=== PATIENT | female | born 1945 | race Caucasian/White ===

== ENCOUNTER 2023-08-29 09:57 | Day surgery (SDC) | payer MEDICARE ==
[2023-08-29] MEDS ORDERED: LIDOCAINE HCL 2% 100 MG/5 ML IJ ONE (09:58)
[2023-08-29] MEDS ORDERED: DIPRIVAN 200 MG/20 ML IV ONE (13:19)
--- NOTE | 2023-08-29 14:38 | XRAY ---
Indication: Bilateral L4-S1 MBB. Intraoperative fluoroscopy provided for 11 seconds. Single digital spot image submitted for interpretation demonstrates posterior needle tips projecting over the expected left and right L4-S1 nerve roots. Correlate with intraoperative findings/report.
[2023-08-29] MEDS ORDERED: Lactated Ringers 1,000 ML IV ONE (14:50)
--- NOTE | 2023-08-29 14:55 | XRAY ---
11 seconds of fluoroscopy was used in surgery for a bilateral L4-S1 MBB.
== END 2023-08-29 13:48 | disposition home or self-care (01) ==
LOC: SDC-PAIN 09:57
PROVIDERS: ATTEND Psychiatry & Neurology Pain Medicine
DX: M47.816 Spondylosis without myelopathy or radiculopathy, lumbar region (principal); E11.9 Type 2 diabetes mellitus without complications; Z79.899 Other long term (current) drug therapy
CPT/HCPCS: 64493; 64494; 72020; 77002; 82947; J2704

== ENCOUNTER 2023-10-31 09:29 | Day surgery (SDC) | payer MEDICARE ==
[2023-10-31] MEDS ORDERED: BUPIVACAINE 0.5% VIAL IJ ONE (09:30)
[2023-10-31] MEDS ORDERED: DIPRIVAN 200 MG/20 ML IV ONE (11:34)
--- NOTE | 2023-10-31 12:43 | XRAY ---
Indication: Bilateral L4-S1 MBB. Intraoperative fluoroscopy provided for 13 seconds. Single digital spot image submitted for interpretation demonstrates posterior needle tips projecting over the expected left and right L4-S1 nerve roots. Correlate with intraoperative findings/report.
--- NOTE | 2023-10-31 13:35 | XRAY ---
13 seconds of fluoroscopy was used in surgery for a bilateral L4-S1 MBB.
[2023-10-31] MEDS ORDERED: Lactated Ringers 1,000 ML IV ONE (14:08)
== END 2023-10-31 12:00 | disposition home or self-care (01) ==
LOC: SDC-PAIN 09:29
PROVIDERS: ATTEND Psychiatry & Neurology Pain Medicine
DX: M47.816 Spondylosis without myelopathy or radiculopathy, lumbar region (principal); E11.9 Type 2 diabetes mellitus without complications; Z79.899 Other long term (current) drug therapy
CPT/HCPCS: 64493; 64494; 72020; 77002; 82947; J2704

== ENCOUNTER 2023-11-28 06:55 | Day surgery (SDC) | payer MEDICARE ==
[2023-11-28] MEDS ORDERED: XYLOCAINE-MPF 1% 5ML SDV IJ ONE (06:56)
[2023-11-28] MEDS ORDERED: BUPIVACAINE 0.5% VIAL IJ ONE (06:56)
[2023-11-28] MEDS ORDERED: Depo-Medrol 40 MG/ML IM ONE (06:56)
[2023-11-28] MEDS ORDERED: DIPRIVAN 200 MG/20 ML IV ONE (08:08)
--- NOTE | 2023-11-28 10:28 | XRAY ---
Indication: Right L4-S1 RFA. Intraoperative fluoroscopy was provided for 21 seconds. 4 digital spot image submitted for interpretation demonstrates posterior needle tips projecting over the expected right L4-S1 nerve roots. Correlate with intraoperative findings/report.
--- NOTE | 2023-11-28 10:47 | XRAY ---
21 seconds of fluoroscopy was used in surgery for a right L4-S1 RFA.
[2023-11-28] MEDS ORDERED: Lactated Ringers 1,000 ML IV ONE (13:34)
== END 2023-11-28 08:45 | disposition home or self-care (01) ==
LOC: SDC-PAIN 06:55
PROVIDERS: ATTEND Psychiatry & Neurology Pain Medicine
DX: M47.816 Spondylosis without myelopathy or radiculopathy, lumbar region (principal); E11.9 Type 2 diabetes mellitus without complications
CPT/HCPCS: 64635; 64636; 72100; 77002; 82947; 99100; J1030; J2704

== ENCOUNTER 2023-12-12 08:59 | Day surgery (SDC) | payer MEDICARE ==
[2023-12-12] MEDS ORDERED: XYLOCAINE-MPF 1% 5ML SDV IJ ONE (09:00)
[2023-12-12] MEDS ORDERED: Depo-Medrol 40 MG/ML IM ONE (09:00)
[2023-12-12] MEDS ORDERED: BUPIVACAINE 0.5% VIAL IJ ONE (09:00)
[2023-12-12] MEDS ORDERED: DIPRIVAN 200 MG/20 ML IV ONE (10:38)
[2023-12-12] MEDS ORDERED: Lactated Ringers 1,000 ML IV ONE (10:54)
--- NOTE | 2023-12-12 11:25 | XRAY ---
Indication: Left L4-S1 RFA. Intraoperative fluoroscopy provided for 22 seconds. 3 digital spot image submitted for interpretation demonstrates posterior needle tips projecting over the expected left L4-S1 nerve roots. Correlate with intraoperative findings/report.
--- NOTE | 2023-12-12 12:06 | XRAY ---
22 seconds of fluoroscopy was used in surgery for a left L4-S1 RFA.
== END 2023-12-12 11:24 | disposition home or self-care (01) ==
LOC: SDC-PAIN 08:59
PROVIDERS: ATTEND Psychiatry & Neurology Pain Medicine
DX: M47.816 Spondylosis without myelopathy or radiculopathy, lumbar region (principal); E11.9 Type 2 diabetes mellitus without complications
CPT/HCPCS: 64635; 64636; 72100; 77002; 82947; 99100; J1030; J2704